=== PATIENT | female | born 1985 | race Hispanic/Latino ===

== ENCOUNTER → 2020-04-26 | Day surgery (SDC) | payer BC ==
[2020-04-23 15:10] LABS: BASOPHILS % 0.3 % (0.0-1.0); EOSINOPHILS # (AUTO) 0.3 (0.0-0.4); EOSINOPHILS % 2.3 % (0.0-6.0); HEMATOCRIT 37.3 % (34.2-44.1); HEMOGLOBIN 12.2 g/dL (12.0-16.0); LYMPHOCYTES # (AUTO) 4.8 (1.0-3.2); MEAN CORPUSCULAR HEMOGLOBIN 26.9 pg (28-32); MEAN CORPUSCULAR HGB CONC 32.7 g/dL (31-35); MEAN CORPUSCULAR VOLUME 82.2 fL (81-99); MONOCYTES # (AUTO) 0.7 (0.2-0.8); MONOCYTES % 5.1 % (4.4-11.3); NEUTROPHILS # (AUTO) 7.8 (2.1-6.9); NEUTROPHILS % 56.9 % (38.7-80.0); PLATELET COUNT 265 x10e3/uL (140-360); RED BLOOD COUNT 4.54 x10e6/uL (3.6-5.1); RED CELL DISTRIBUTION WIDTH 13.1 % (11.7-14.4)
[~2020-04-26] MED LIST: BUPIVACAINE HCL 0.5% INJ 30 ML VIAL INJ ONE; CEFAZOLIN SOD 1 GM/NS 50ML 100 ML IV ONE; DEXAMETHASONE SOD PHOS INJ 4 MG/ML VIAL ONE; FENTANYL CITRATE/PF 100MCG/2 ML INJ ONE; HYDROMORPHONE 1MG/1ML INJ ONE; KETOROLAC TROMETHAMINE 30 MG/ML VIAL ONE; LIDOCAINE 1% W/EPINEPHRINE 20 ML VIAL ONE; LIDOCAINE HCL 2% LOCAL INJ 5 ML SDV VIAL INJ ONE; MEPERIDINE HCL INJ 25 MG/ML VIAL ONE; METOCLOPRAMIDE HCL 10 MG/2ML VIAL ONE; MIDAZOLAM HCL 2 MG/2 ML VIAL ONE; NEOSTIGMINE 1 MG/ML 10ML VIAL ONE; ONDANSETRON HCL INJ 2MG/ML 2ML 2 MG/ML VIAL ONE; PROPOFOL IV EMULSION 10 MG/ML 20 ML VIAL ONE; SEVOFLURANE INHAL SOLN 250 ML PEN BTL ONE
[2020-04-26 11:31] LABS: BASOPHILS % 0.2 % (0.0-1.0); EOSINOPHILS # (AUTO) 0.2 (0.0-0.4); EOSINOPHILS % 1.7 % (0.0-6.0); HEMATOCRIT 38.5 % (34.2-44.1); HEMOGLOBIN 12.4 g/dL (12.0-16.0); LYMPHOCYTES # (AUTO) 3.6 (1.0-3.2); LYMPHOCYTES % 29.3 % (18.0-39.1); MEAN CORPUSCULAR HEMOGLOBIN 26.3 pg (28-32); MEAN CORPUSCULAR HGB CONC 32.2 g/dL (31-35); MEAN CORPUSCULAR VOLUME 81.7 fL (81-99); MONOCYTES # (AUTO) 0.6 (0.2-0.8); MONOCYTES % 4.4 % (4.4-11.3); NEUTROPHILS # (AUTO) 7.9 (2.1-6.9); NEUTROPHILS % 63.9 % (38.7-80.0); PLATELET COUNT 264 x10e3/uL (140-360); RED BLOOD COUNT 4.71 x10e6/uL (3.6-5.1)
[2020-04-26 15:55] VITALS: BP 108/69
--- NOTE | 2020-05-15 01:43 | Operative Report ---
DATE OF PROCEDURE: 04/26/2020 SURGEON: Brennon Morris DPM PREOPERATIVE DIAGNOSIS: Lipoma, left foot. POSTOPERATIVE DIAGNOSIS: Lipoma, left foot. TITLE OF THE OPERATION: Excision of lipoma, left foot. ANESTHESIA: General endotracheal. HEMOSTASIS: Left ankle tourniquet. PROCEDURE IN DETAIL: The patient was taken to the operating room in a mildly sedated state, placed on the operating table in supine position. Following induction of general anesthetic, left lower extremity was elevated to 60 degrees to exsanguinate before inflating the pneumatic thigh tourniquet at 350 mmHg to create hemostasis. Left lower extremity was placed on the operating table prior to performing the following procedure: Procedure #1: The excision of lipoma, left foot. A large lipoma was noted at the medial aspect of the left ankle. The incision was placed in a transverse fashion, approximately 6 cm in length. A large lipoma was noted within that area and the lipoma was circumscribed to release it from all underlying tissue. All superficial bleeders were electrocoagulated. Care was taken to retract all neurovascular structures from harm's way. After the lipoma itself was removed, it was sent to pathology. The area was irrigated with copious amounts of sterile saline solution. Deep closure with 3-0 Vicryl, skin closure with 4-0 nylon. The areas of surgery were all blocked with 0.5 Marcaine and Decadron [place]. Release of the pneumatic thigh tourniquet showed a normal hyperemic flush to all digits of the left foot. The patient left the operating room, vital signs stable in apparent satisfactory condition, having tolerated both anesthetic and procedure very well. OLIVER Burgess/CHICHO /[id number]
== END | disposition home or self-care (01) ==
LOC: OR 10:48
PROVIDERS: ATTEND Podiatrist Foot Surgery
DX: D17.39 Benign lipomatous neoplasm of skin and subcutaneous tissue of other sites (principal); Z01.812 Encounter for preprocedural laboratory examination; Z20.828 Contact with and (suspected) exposure to other viral communicable diseases
CPT/HCPCS: 28039; 36415 ×2; 81025; 85025 ×2; 88304; J0690; J1100; J1170; J1885; J2001; J2175; J2250; J2405; J2704; J2710; J2765; J3010; U0002; V2790